=== PATIENT | female | born 1970 | race Two or more races ===

== ENCOUNTER 2024-09-06 09:09 | Outpatient (AMB) | payer MEDICAID, SELFPAY ==
[2024-09-06 09:21] VITALS: BP 112/76; PULSE 79; RESP 18; TEMP 36.2; O2SAT 95; BMI 35.0
--- NOTE | 2024-09-06 09:21 | PD.ORTHCLVIS ---
Vital signs 09/06/24 09:21 Height 1.63 m Height Method Stated Weight 92.561 kg Weight Measurement Method Standing Scale BMI 35.0 BP 112/76 Blood Pressure Source Automatic Cuff Blood Pressure Location Right Upper Arm Position Sitting Respiration 18 Pulse 79 Pulse Source Monitor Temp 97.2 F Temp Source Temporal Artery Scan Pulse Oximetry (%) 95 Oxygen Delivery Method Room Air Med/Allergies Allergies & Medications Allergies Penicillins Allergy (Severe, Verified 09/06/24 09:21) Hives Medication Reconciliation alprazolam 0.5 mg tablet (Xanax) 0.5 mg PO BID #0 tabs 02/02/17 [History Confirmed 09/06/24] albuterol sulfate 90 mcg/actuation aerosol inhaler 1 puff inhalation BID PRN Shortness Of Breath 09/20/19 [History Confirmed 09/06/24] duloxetine 60 mg capsule,delayed release 60 mg PO QDAY 09/20/19 [History Confirmed 09/06/24] gabapentin 800 mg tablet 800 mg PO TID 09/20/19 [History Confirmed 09/06/24] hydrocodone 7.5 mg-acetaminophen 300 mg tablet 1 tab PO Q8H 09/20/19 [History Confirmed 09/06/24] ibuprofen 800 mg tablet 800 mg PO BID 09/20/19 [History Confirmed 09/06/24] omeprazole 20 mg tablet,delayed release 20 mg PO QDAY 09/20/19 [History Confirmed 09/06/24] ondansetron 8 mg disintegrating tablet 8 mg PO Q8H PRN Nausea And Vomiting 09/20/19 [History Confirmed 09/06/24] ondansetron HCl 4 mg tablet (Zofran) 4 mg PO QID PRN nausea and vomiting #20 tabs 09/20/19 [Rx Confirmed 09/06/24] ropinirole 2 mg tablet 2 mg PO HS 09/20/19 [History Confirmed 09/06/24] sitagliptin phosphate 50 mg-metformin 500 mg tablet (Janumet) 1 tab PO BID 09/20/19 [History Confirmed 09/06/24] alprazolam 0.5 mg tablet (Xanax) 0.5 mg PO BID PRN anxiety #20 tabs 11/09/19 [Rx Confirmed 09/06/24] azithromycin 500 mg tablet See Rx Instructions PO .COMPLEX #6 tabs 06/04/21 [Rx Confirmed 09/06/24] ibuprofen 800 mg tablet 800 mg PO TID PRN pain #30 tabs 06/04/21 [Rx Confirmed 09/06/24] acetaminophen 500 mg tablet (Tylenol Extra Strength) 500 mg PO Q6H PRN pain #60 tabs 09/18/23 [Rx Confirmed 09/06/24] methocarbamol 500 mg tablet 1,000 mg (2 x 500 mg) PO Q8H PRN pain #30 tabs 09/18/23 [Rx Confirmed 09/06/24] hydrocodone 7.5 mg-acetaminophen 325 mg tablet 1 tab PO Q6H PRN pain #14 tabs 09/26/23 [Rx Confirmed 09/06/24] Subjective Visit Visit for: new patient and knee (RIGHT) Immunization / Flu Flu Vaccine in the Last 12 Months: No Flu Vaccine Exclusion Criteria: Refused by Patient History of Present Illness Chief complaint: RIGHT KNEE PAIN Sangita is a pleasant 53-year-old female with right knee pain and right knee arthritis. The pains been bothering her for over 5 years. She has pain in multiple joints and is on [place] because of this. She has had 3 injections in each knee in the last about 3 to 4 months. 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 [employer] Red flag PMH: smoker Pain Pain level (0-10): 5 Pain duration: CONSTANT Pain location: inside (medial) Pain quality: sharp, dull, aching, burning, shocking, electric and tingling Pain timing: night, increases with activity and stairs Associated signs & symptoms: numbness, weakness and stiffness Ambulatory data Ambulatory device: other (specify) (BRACES) Treatments Number of previous injections: 3 Improvement with previous injections: No Number of Physical Therapy sessions: 24 Improvement with PT: No Improvement with NSAIDS: no Review of Systems Review of Systems: All systems negative unless otherwise noted in HPI. Exam Exam Patient is in no acute distress and is cooperative with the examination today. Breathing is nonlabored. Patient has a normal mood and affect. Bilateral extremities were evaluated and demonstrates sensation intact to light touch. Palpable pedal pulses are present. No significant edema is present. Bilateral hips were examined. The patient has no pain with log roll of the hips. Internal rotation to 30 degrees and external rotation to 30 degrees is painless. Negative FADIR. Left knee was examined today. The left knee is in reasonable alignment. Range of motion from 0-120 degrees. Knee is stable to varus and valgus as well as AP translation with <5mm. Patient has a negative McMurrays. There is no pain with patellofemoral compression and no crepitus noted. The knee is nontender to palpation. The right knee was also examined. The right knee is in valgus alignment. Range of motion from [0-115] degrees. Knee is stable to varus and valgus as well as AP translation with <5mm. Patient has a [negative] McMurrays. There is [no] pain with patellofemoral compression and [no] crepitus noted. The knee is [tender] to palpation laterally. Assessment and Plan Problem List (1) Arthritis of right knee: Status: Acute Plan: Patient is a 53-year-old female with right knee pain and right knee arthritis. We discussed nonoperative and operative options. She has a history of blood clots when she was . She had 6 blood clots in the lungs according to her. She is thus looking avoid surgery if possible. We thus discussed I would recommend bilateral knee cortisone injections every 3 to 4 months as needed. 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 Level 4 ([id number]) Past Medical History Past Medical History Have you ever been diagnosed with any of the following: Neurological Problems Seizures: No Head Trauma: No Cardiology Problems Hypercholesterolemia: Yes Congestive Heart Failure: No Hypertension: Yes Respiratory Problems Chronic Obstructive Pulmonary Disease (COPD): No Asthma: No Pulmonary Embolism: Yes Sleep Apnea: Yes Smoking: No Smoking Exposure: No Stomache/Intestinal Problems Gall Bladder Disease: Yes Genital/Urinary Problems Renal Disease: No Kidney Stones: Yes Reproductive Problems Previous Pregnancies: Yes Musculoskeletal Problems Arthritis: No Degenerative Disk Disease: No Endocrine Problems Diabetes Mellitus Type 1: No Diabetes Mellitus Type 2: Yes Blood Problems Sickle Cell Disease: No Psychologic Problems Depression: No Anxiety: No Other Problems Hospitalization: Yes Shingles: No Falls: No Blood Transfusions: Yes Blood Transfusion Reaction: No Anesthesia Reactions: No Chemotherapy: No Radiation Therapy: No MRSA: No Chicken Pox: Yes
== END 2024-09-06 09:33 | disposition home or self-care (01) ==
LOC: HODSRG 09:09
PROVIDERS: PCP Internal Medicine; Referring Provider Internal Medicine; Supervising Provider Orthopaedic Surgery Adult Reconstructive Orthopaedic Surgery; Visit Provider Orthopaedic Surgery Adult Reconstructive Orthopaedic Surgery
DX: M17.11 Unilateral primary osteoarthritis, right knee (principal); M25.561 Pain in right knee; I10 Essential (primary) hypertension; E78.00 Pure hypercholesterolemia, unspecified; G47.30 Sleep apnea, unspecified; Z86.711 Personal history of pulmonary embolism
CPT/HCPCS: 99204; G0463

== ENCOUNTER 2024-09-25 10:26 | Outpatient (AMB) | payer MEDICAID, SELFPAY ==
[2024-09-25 10:35] VITALS: BP 114/77; PULSE 89; RESP 19; TEMP 36.1; O2SAT 98; BMI 34.2
--- NOTE | 2024-09-25 10:35 | ORTHONT_ITS ---
Vital signs 09/25/24 10:35 Height 1.63 m Height Method Stated Weight 90.917 kg Weight Measurement Method Standing Scale BMI 34.2 BP 114/77 Blood Pressure Source Automatic Cuff Blood Pressure Location Right Upper Arm Position Sitting Respiration 19 Pulse 89 Pulse Source Monitor Temp 96.9 F Temp Source Temporal Artery Scan Pulse Oximetry (%) 98 Oxygen Delivery Method Room Air Med/Allergies Allergies & Medications Allergies Penicillins Allergy (Severe, Verified 09/25/24 10:36) Hives Medication Reconciliation alprazolam 0.5 mg tablet (Xanax) 0.5 mg PO BID #0 tabs 02/02/17 [History Conf irmed 09/25/24] albuterol sulfate 90 mcg/actuation aerosol inhaler 1 puff inhalation BID PRN Shortness Of Breath 09/20/19 [History Confirmed 09/25/24] duloxetine 60 mg capsule,delayed release 60 mg PO QDAY 09/20/19 [History Confirmed 09/25/24] gabapentin 800 mg tablet 800 mg PO TID 09/20/19 [History Confirmed 09/25/24] hydrocodone 7.5 mg-acetaminophen 300 mg tablet 1 tab PO Q8H 09/20/19 [History C onfirmed 09/25/24] ibuprofen 800 mg tablet 800 mg PO BID 09/20/19 [History Confirmed 09/25/24] omeprazole 20 mg tablet,delayed release 20 mg PO QDAY 09/20/19 [History Confirmed 09/25/24] ondansetron 8 mg disintegrating tablet 8 mg PO Q8H PRN Nausea And Vomiting 09/20/19 [History Confirmed 09/25/24] ondansetron HCl 4 mg tablet (Zofran) 4 mg PO QID PRN nausea and vomiting #20 tabs 09/20/19 [Rx Confirmed 09/25/24] ropinirole 2 mg tablet 2 mg PO HS 09/20/19 [History Confirmed 09/25/24] sitagliptin phosphate 50 mg-metformin 500 mg tablet (Janumet) 1 tab PO BID 09/20/19 [History Confirmed 09/25/24] alprazolam 0.5 mg tablet (Xanax) 0.5 mg PO BID PRN anxiety #20 tabs 11/09/19 [Rx Confirmed 09/25/24] azithromycin 500 mg tablet See Rx Instructions PO .COMPLEX #6 tabs 06/04/21 [Rx Confirmed 09/25/24] ibuprofen 800 mg tablet 800 mg PO TID PRN pain #30 tabs 06/04/21 [Rx Confirmed 09/25/24] acetaminophen 500 mg tablet (Tylenol Extra Strength) 500 mg PO Q6H PRN pain #60 tabs 09/18/23 [Rx Confirmed 09/25/24] methocarbamol 500 mg tablet 1,000 mg (2 x 500 mg) PO Q8H PRN pain #30 tabs 09/18/23 [Rx Confirmed 09/25/24] hydrocodone 7.5 mg-acetaminophen 325 mg tablet 1 tab PO Q6H PRN pain #14 tabs 09/26/23 [Rx Confirmed 09/25/24] Subjective Visit Visit for: follow up visit and knee Immunization / Flu Flu Vaccine in the Last 12 Months: No Flu Vaccine Exclusion Criteria: No Exclusion Criteria History of Present Illness Chief complaint: KNEE PAIN Sangita is a pleasant 53-year-old female with right knee pain and right knee arthritis. The pains been bothering her for over 5 years. She has pain in multiple joints and is on [place] because of this. She has had 3 injections in each knee in the last about 3 to 4 months. She reports the right knee significantly worse than the left. She would bilateral knee injections today. 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 Exam Exam Patient is in no acute distress and is cooperative with the examination today. Breathing is nonlabored. Patient has a normal mood and affect. Bilateral extremities were evaluated and demonstrates sensation intact to light touch. Palpable pedal pulses are present. No significant edema is present. Bilateral hips were examined. The patient has no pain with log roll of the hips. Internal rotation to 30 degrees and external rotation to 30 degrees is painless. Negative FADIR. Left knee was examined today. The left knee is in reasonable alignment. Range of motion from 0-120 degrees. Knee is stable to varus and valgus as well as AP translation with <5mm. Patient has a negative McMurrays. There is no pain with patellofemoral compression and no crepitus noted. The knee is nontender to palpation. The right knee was also examined. The right knee is in valgus alignment. Range of motion from [0-115] degrees. Knee is stable to varus and valgus as well as AP translation with <5mm. Patient has a [negative] McMurrays. There is [no] pain with patellofemoral compression and [no] crepitus noted. The knee is [tender] to palpation laterally. Assessment and Plan Problem List (1) Arthritis of right knee: Status: Acute Plan: Patient is a 53-year-old female with right knee pain and right knee arthritis. She has significant arthritis of the right knee. We will Here for bilateral knee injections today. She would like to avoid surgery if possible Recommend knee cortisone injections as patient would like to proceed with conservative treatment at this time. The risks and benefits of the procedure were reviewed with the patient and patient gave verbal consent to continue with the procedure. Procedure: performed by Dr. Bateman Using sterile technique the Bilateral knees were thoroughly prepped with alcohol, and approximately 1 cc of Kenalog 40 mg/mL and 4 cc of 1% lidocaine was injected into each knee without resistance into the medial tibial femoral joint space. The patient tolerated the procedure. Office Procedures GNS Level of Care Nursing/Assessment Patient Status: Established Patient Nursing Assessment/Reassesment: Medication Reconciliation, Update PMH in EMR and Vital Signs Coordination of Care: Complex Care and Chronic Disease 1-5, Education Complex Pt/Fam, Consent,records obtained, informed consent, Results/Orders obtained and Staff clarify orders Established Patient Charge Established Patient Point Assignment: 95 Established Patient Point Charge: EP Level 3 (80-115) Surgical Proc/IM SQ injection Major Surgical Procedure: Yes (KNEE INJECTION ) Past Medical History Past Medical History Have you ever been diagnosed with any of the following: Neurological Problems Seizures: No Head Trauma: No Cardiology Problems Hypercholesterolemia: Yes Congestive Heart Failure: No Hypertension: Yes Respiratory Problems Chronic Obstructive Pulmonary Disease (COPD): No Asthma: No Pulmonary Embolism: Yes Sleep Apnea: Yes Smoking: No Smoking Exposure: No Stomache/Intestinal Problems Gall Bladder Disease: Yes Genital/Urinary Problems Renal Disease: No Kidney Stones: Yes Reproductive Problems Previous Pregnancies: Yes Musculoskeletal Problems Arthritis: No Degenerative Disk Disease: No Endocrine Problems Diabetes Mellitus Type 1: No Diabetes Mellitus Type 2: Yes Blood Problems Sickle Cell Disease: No Psychologic Problems Depression: No Anxiety: No Other Problems Hospitalization: Yes Shingles: No Falls: No Blood Transfusions: Yes Blood Transfusion Reaction: No Anesthesia Reactions: No Chemotherapy: No Radiation Therapy: No MRSA: No Chicken Pox: Yes
== END 2024-09-25 11:01 | disposition home or self-care (01) ==
LOC: HODSRG 10:26
PROVIDERS: PCP Internal Medicine; Referring Provider Internal Medicine; Supervising Provider Orthopaedic Surgery Adult Reconstructive Orthopaedic Surgery; Visit Provider Orthopaedic Surgery Adult Reconstructive Orthopaedic Surgery
DX: M17.11 Unilateral primary osteoarthritis, right knee (principal); M25.561 Pain in right knee; I10 Essential (primary) hypertension; E78.00 Pure hypercholesterolemia, unspecified; Z86.711 Personal history of pulmonary embolism
CPT/HCPCS: 20610; 99213; J3301; J3490; G0463

== ENCOUNTER 2024-11-01 00:12 | Emergency (ER) | payer MEDICAID, SELFPAY ==
[2024-11-01 00:12] VITALS: BMI 32.4
[2024-11-01 00:26] VITALS: BP 113/77; PULSE 92; RESP 18; TEMP 36.6; O2SAT 98
--- NOTE | 2024-11-01 00:38 | XR_ITS ---
Examination: Shoulder,left, 3 views Technique: Shoulder AP internal rotation, AP external rotation, Y view shoulder, 3 views Exam date and time :November 01, 2024 0106 hrs. Indications: Left shoulder pain beginning 4 days ago. Findings: No shoulder fracture or dislocation Mild narrowing glenohumeral joint No calcific tendinitis Impression: Mild narrowing glenohumeral joint
--- NOTE | 2024-11-01 02:42 | PD.EDUPEX ---
Upper Extremity Injury RME/HPI General Chief Complaint: Extremity Injury, Upper Stated Complaint: LEFT SHOULDER/BACK PAIN X 4DAYS Time Seen by Provider: 11/01/24 00:41 Source: patient Arrival date/time: 11/01/24 00:12 54-year-old female with no known medical history presents to the emergency room with a chief complaint of left shoulder and back pain x 4 days. Mode of arrival: ambulatory Limitations: no limitations Related Data Home Medications ?Medication ?Instructions ?Recorded ?Confirmed alprazolam 0.5 mg tablet (Xanax) 0.5 mg PO BID #0 tabs 02/02/17 09/25/24 albuterol sulfate 90 mcg/actuation 1 puff inhalation BID PRN 09/20/19 09/25/24 aerosol inhaler Shortness Of Breath duloxetine 60 mg capsule,delayed 60 mg PO QDAY 09/20/19 09/25/24 release gabapentin 800 mg tablet 800 mg PO TID 09/20/19 09/25/24 hydrocodone 7.5 mg-acetaminophen 1 tab PO Q8H 09/20/19 09/25/24 300 mg tablet ibuprofen 800 mg tablet 800 mg PO BID 09/20/19 09/25/24 omeprazole 20 mg tablet,delayed 20 mg PO QDAY 09/20/19 09/25/24 release ondansetron 8 mg disintegrating 8 mg PO Q8H PRN Nausea And Vomiting 09/20/19 09/25/24 tablet ropinirole 2 mg tablet 2 mg PO HS 09/20/19 09/25/24 sitagliptin phosphate 50 1 tab PO BID 09/20/19 09/25/24 mg-metformin 500 mg tablet (Janumet) Previous Rx's ?Medication ?Instructions ?Recorded ondansetron HCl 4 mg tablet 4 mg PO QID PRN nausea and 09/20/19 (Zofran) vomiting #20 tabs alprazolam 0.5 mg tablet (Xanax) 0.5 mg PO BID PRN anxiety #20 tabs 11/09/19 azithromycin 500 mg tablet See Rx Instructions PO .COMPLEX #6 06/04/21 tabs ibuprofen 800 mg tablet 800 mg PO TID PRN pain #30 tabs 06/04/21 acetaminophen 500 mg tablet 500 mg PO Q6H PRN pain #60 tabs 09/18/23 (Tylenol Extra Strength) methocarbamol 500 mg tablet 1,000 mg (2 x 500 mg) PO Q8H PRN 09/18/23 pain #30 tabs hydrocodone 7.5 mg-acetaminophen 1 tab PO Q6H PRN pain #14 tabs 09/26/23 325 mg tablet Allergies Allergy/AdvReac Type Severity Reaction Status Date / Time Penicillins Allergy Severe Hives Verified 09/25/24 10:36 Review of Systems Review of Systems Systems Reviewed: All systems reviewed, normal except as documented Constitutional Constitutional: Reports system reviewed and no additional complaints, except as documented, Denies fatigue, Denies fever(s), Denies headache(s) and Denies weakness Eyes Eyes: Reports system reviewed and no additional complaints, except as documented, Denies blurry vision and Denies change in vision ENT Ears, Nose, Mouth, and Throat: Reports system reviewed and no additional complaints, except as documented, Denies otalgia, Denies headache(s), Denies nasal congestion, Denies throat swelling and Denies vertigo Cardiovascular Cardiovascular: Reports system reviewed and no additional complaints, except as documented, Denies chest pain, Denies dyspnea and Denies dyspnea on exertion Respiratory Respiratory: Reports system reviewed and no additional complaints, except as documented, Denies chest congestion, Denies cough, Denies dyspnea, Denies dyspnea on exertion and Denies wheezing Gastrointestinal Gastrointestinal: Reports system reviewed and no additional complaints, except as documented, Denies abdominal pain, Denies cramping, Denies nausea and Denies vomiting Genitourinary Genitourinary: Reports system reviewed and no additional complaints, except as documented Musculoskeletal Musculoskeletal: Reports system reviewed and no additional complaints, except as documented, Reports arthralgias, Denies back pain and Reports joint swelling Integumentary/Breasts Skin/Breast: Reports system reviewed and no additional complaints, except as documented and Denies wounds Neurologic Neurologic: Reports system reviewed and no additional complaints, except as documented, Denies confusion, Denies headache(s), Denies lack of coordination, Denies vertigo and Denies weakness Psychiatric Psychiatric: Reports system reviewed and no additional complaints, except as documented, Denies anxiety, Denies confusion, Denies depression, Denies paranoia, Denies suicidal ideation and Denies tactile hallucinations Endocrine Endocrine: Reports system reviewed and no additional complaints, except as documented and Denies fatigue Hematologic/Lymphatic Hematologic/Lymphatic: Reports system reviewed and no additional complaints, except as documented and Denies lymphadenopathy Allergic/Immunologic Allergic/Immunologic: Reports system reviewed and no additional complaints, except as documented, Denies throat swelling, Denies urticaria and Denies wheezing Past Medical History Past Medical History NEUROLOGIC: Negative Neurological Disorders, Seizures or Head Trauma CARDIAC: Positive Hypercholesterolemia and Hypertension; Negative Cardiac Disorders or Congestive Heart Failure RESPIRATORY: Positive Pulmonary Embolism and Sleep Apnea; Negative Chronic Obstructive Pulmonary Disease (COPD), Asthma, Smoking or Smoking Exposure GASTROINTESTINAL: Positive Gastrointestinal Disorders and Gall Bladder Disease GENITOURINARY: Positive Kidney Stones; Negative Genitourinary Disorders or Renal Disease REPRODUCTIVE: Positive Previous Pregnancies MUSCULOSKELETAL: Negative Musculoskeletal Disorders, Arthritis or Degenerative Disk Disease ENT: Negative Head Trauma ENDOCRINE: Positive Diabetes Mellitus Type 2; Negative Endocrine Disorders or Diabetes Mellitus Type 1 HEMATOLOGIC: Negative Blood Disorders or Sickle Cell Disease PSYCHO/SOCIAL: Negative Depression or Anxiety OTHER HISTORY: Positive Hospitalization, Blood Transfusions and Chicken Pox; Negative Autoimmune Disease, Shingles, Falls, Blood Transfusion Reaction, Anesthesia Reactions, Chemotherapy, Radiation Therapy or MRSA Family History FAMILY HISTORY: Positive Family Psychiatric Problems, Family Cardiac Disorders and Family Surgery; Negative Family Respiratory Disorders, Family Gastrointestinal Problems, Family Cancer or Family Anesthesia Reaction Surgical History SURGICAL: Positive Section Social History SMOKING STATUS: Never smoker SECOND HAND EXPOSURE: No ED Exam General Limitations: Present no limitations General appearance: Present alert and in no apparent distress Head Head exam: Present atraumatic Eye Eye exam: Present normal appearance, PERRL and EOMI ENT ENT exam: Present normal exam, normal oropharynx and mucous membranes moist Neck Neck exam: Present normal inspection, full ROM and trachea midline Chest Chest inspection: Present normal inspection and symmetric chest wall rise Respiratory Respiratory exam: Present normal lung sounds bilaterally Cardiovascular Cardiovascular exam: Present regular rate, normal rhythm and normal heart sounds Abdominal Exam Abdominal exam: Present soft and normal bowel sounds Extremities Exam Extremities exam: Present normal inspection and full ROM Expanded Upper Extremity Exam Shoulder exam: Present tenderness; Absent full ROM Back Exam Back exam: Present normal inspection and full ROM Neurological Exam Neurological exam: Present alert, oriented X3 and CN II-XII intact Psychiatric Psychiatric exam: Present normal affect and normal mood Skin Skin exam: Present warm, dry, intact and normal color Course Quality Measures none Orders Category Date Time Status sling [Splint / Immobilizer] STAT Care 11/01/24 03:20 Completed XR shoulder LT min 2V Stat Exams 11/01/24 00:38 Taken Vital Signs Vital signs: Vital Signs Temperature 97.8 F 11/01/24 00:26 Pulse Rate 92 11/01/24 00:26 Respiratory Rate 18 11/01/24 00:26 Blood Pressure 113/77 11/01/24 00:26 Pulse Oximetry (%) 98 11/01/24 00:26 Oxygen Delivery Method Room Air 11/01/24 00:26 O2 saturation 98% within normal limits Extremity Injury MDM Narrative MDM Narrative:: 54-year-old female with no known medical history presents to the emergency room with a chief complaint of left shoulder and back pain x 4 days. Clinically the patient appears nontoxic and in no apparent distress. Physical examination shows pain and tenderness to the left shoulder with palpation. Patient is also unable to lift up her arm and states she has 10 out of 10 pain when moving it. Shoulder x-ray was completed and was negative for any acute fracture however patient was educated that she needs to follow-up with her primary care provider as she needs an MRI to check for any ligament damage or strains. Sling was placed. Patient was discharged and educated to follow-up with primary care provider and return to the emergency room for any evidence of worsening signs or symptoms Patient data External records reviewed:: [facility] previous records Clinical information provided by:: patient Social determinants that could affect healthcare access:: none Patient has the following chronic illnesses:: No chronic illness How is presenting disease/condition affected by chronic disease/condition?: no chronic disease Evaluation data The following diagnostics were reviewed and interpreted by me:: lab results and radiology exam(s) Lab and/or radiology exams considered but not ordered:: Labs and radiology exams considered and ordered Interpretation Summary: Left shoulder x-ray-no acute fracture Medications / Prescriptions Medications or Prescriptions considered but not ordered:: No medication given Medication administrations:: No medication given Consultations Consultation(s) initiated? (list below): No Diagnosis Upper Extremity Injury Differential Diagnosis: dislocation of shoulder, fracture of clavicle and other (Shoulder sprain/shoulder fracture) Most likely diagnosis given after review of the tests above:: Shoulder sprain Admission Indicated Admission indicated?: not indicated Admission Request Was there a request for admission?: No Disposition Plan Disposition Plan: Discharge Discharge Attestation Discharge Attestation: The patient and all family members were given an opportunity to ask questions and understood the discharge instructions. Discharge instructions specifically effects, indications for sooner follow up or return to the emergency department, and the expected course of current diagnosis. Patient condition: Stable Discharge Plan Plan Patient Disposition: HOME (Self Care) Disposition Comment: Stable Prescriptions/Referrals Prescriptions/Med Rec: No Action alprazolam [Xanax] 0.5 MG tablet 0.5 mg PO BID Qty: 0 alprazolam [Xanax] 0.5 mg tablet 0.5 mg PO BID PRN (Reason: anxiety) Qty: 20 0RF azithromycin 500 mg tablet See Rx Instructions .ROUTE .COMPLEX Qty: 6 0RF Rx Instructions: take 500 mg today (day 1), then 250 mg for 4 days (days 2-5) ibuprofen 800 mg tablet 800 mg PO TID PRN (Reason: pain) Qty: 30 0RF ibuprofen 800 mg Tablet 800 mg PO BID ondansetron 8 mg tablet,disintegrating 8 mg PO Q8H PRN (Reason: Nausea And Vomiting) Patient Comments: DISSOLVE ONE TABLET BY MOUTH EVERY TWELVE HOURS NEEDED FOR NAUSEA AND VOMITING FOR 10 DAYS gabapentin 800 mg tablet 800 mg PO TID ropinirole 2 mg tablet 2 mg PO HS Patient Comments: TAKE ONE TABLET BY MOUTH THREE HOURS BEFORE BEDTIME albuterol sulfate 90 mcg/actuation HFA aerosol inhaler 1 puff inhalation BID PRN (Reason: Shortness Of Breath) duloxetine 60 mg capsule,delayed release(DR/EC) 60 mg PO QDAY hydrocodone-acetaminophen 7.5-300 mg tablet 1 tab PO Q8H Patient Comments: TAKE ONE TABLET BY MOUTH EVERY 8 HOURS NEEDED FOR PAIN FOR 30 DAYS Janumet 50-500 mg tablet 1 tab PO BID Patient Comments: TAKE ONE TABLET BY MOUTH WITH MEALS TWICE DAILY FOR DIABETES omeprazole 20 mg tablet,delayed release (DR/EC) 20 mg PO QDAY ondansetron HCl [Zofran] 4 mg tablet 4 mg PO QID PRN (Reason: nausea and vomiting) Qty: 20 0RF Tylenol Extra Strength 500 mg tablet 500 mg PO Q6H PRN (Reason: pain) Qty: 60 0RF methocarbamol 500 mg tablet 1,000 mg PO Q8H PRN (Reason: pain) Qty: 30 0RF hydrocodone-acetaminophen 7.5-325 mg tablet 1 tab PO Q6H MDD 4 PRN (Reason: pain) Qty: 14 0RF Referrals: Temporary Provider,ED [Physician] - In 1 week Problem List Clinical Impression: Shoulder sprain Patient/Caregiver Discharge Instructions Education Materials: ED TOBIN Wrap, ED Shoulder Sprain Additional Instructions: Please follow-up with your primary care provider in the next 24 to 48 hours. X-ray was completed and was negative for any acute fractures. If your signs and symptoms continue you will need to follow-up with your primary care provider to check for any ligament damage sprains or strains with an outpatient MRI. For any evidence of worsening signs or symptoms please return to the emergency room immediately Print Language: Burmese Stand Alone Forms: [facility] Award Info., Patient Portal Info Letter PA/CORPORATE SPECIALIST Supervising Physician PA/RADHA Supervising Physician: Dr. Ha
[2024-11-01 03:27] VITALS: RESP 18
--- NOTE | 2024-11-01 05:01 | PRELIM_ITS ---
Radiographs of the left shoulder joint (3 views) November 01, 2024 0106 hoursClinical history: Shoulde r painComparison: No prior study is available for comparison. Findings:There is sclerosis and osteoph ytic spiking of the greater tuberosity of the humerus and the tip of the acromion process. The subacr omial space is decreased. There is no evidence of calcification in the region of the rotator cuff. Th e glenohumeral and acromioclavicular joints are normal in configuration and alignment. No bony abnorm ality or fracture is identified. Impression:Periarthritis of the left shoulder joint. Report Electron ically Signed By: Karime Virk 11/01/2024 5:01:01 AM [EST]
== END 2024-11-01 03:29 | disposition home or self-care (01) ==
PROVIDERS: Emergency Provider Emergency Medicine; PCP Internal Medicine
DX: S43.402A Unspecified sprain of left shoulder joint, initial encounter (principal); M54.9 Dorsalgia, unspecified; X58.XXXA Exposure to other specified factors, initial encounter
CPT/HCPCS: 73030; 99283; A4565

== ENCOUNTER 2024-12-25 09:30 | Outpatient (AMB) | payer MEDICAID, SELFPAY ==
[2024-12-25 09:37] VITALS: BP 103/73; PULSE 86; RESP 18; TEMP 36.4; O2SAT 98; BMI 37.3
--- NOTE | 2024-12-25 09:37 | PD.ORTHCLVIS ---
Vital signs 12/25/24 09:37 Height 1.63 m Height Method Stated Weight 99.053 kg Weight Measurement Method Standing Scale BMI 37.3 BP 103/73 Blood Pressure Source Automatic Cuff Blood Pressure Location Left Upper Arm Position Sitting Respiration 18 Pulse 86 Pulse Source Monitor Temp 97.5 F Temp Source Temporal Artery Scan Pulse Oximetry (%) 98 Oxygen Delivery Method Room Air Med/Allergies Allergies & Medications Allergies Penicillins Allergy (Severe, Verified 09/25/24 10:36) Hives Medication Reconciliation alprazolam 0.5 mg tablet (Xanax) 0.5 mg PO BID #0 tabs 02/02/17 [History Confirmed 12/25/24] albuterol sulfate 90 mcg/actuation aerosol inhaler 1 puff inhalation BID PRN Shortness Of Breath 09/20/19 [History Confirmed 12/25/24] duloxetine 60 mg capsule,delayed release 60 mg PO QDAY 09/20/19 [History Confirmed 12/25/24] gabapentin 800 mg tablet 800 mg PO TID 09/20/19 [History Confirmed 12/25/24] hydrocodone 7.5 mg-acetaminophen 300 mg tablet 1 tab PO Q8H 09/20/19 [History Confirmed 12/25/24] ibuprofen 800 mg tablet 800 mg PO BID 09/20/19 [History Confirmed 12/25/24] omeprazole 20 mg tablet,delayed release 20 mg PO QDAY 09/20/19 [History Confirmed 12/25/24] ondansetron 8 mg disintegrating tablet 8 mg PO Q8H PRN Nausea And Vomiting 09/20/19 [History Confirmed 12/25/24] ondansetron HCl 4 mg tablet (Zofran) 4 mg PO QID PRN nausea and vomiting #20 tabs 09/20/19 [Rx Confirmed 12/25/24] ropinirole 2 mg tablet 2 mg PO HS 09/20/19 [History Confirmed 12/25/24] sitagliptin phosphate 50 mg-metformin 500 mg tablet (Janumet) 1 tab PO BID 09/20/19 [History Confirmed 12/25/24] alprazolam 0.5 mg tablet (Xanax) 0.5 mg PO BID PRN anxiety #20 tabs 11/09/19 [Rx Confirmed 12/25/24] azithromycin 500 mg tablet See Rx Instructions PO .COMPLEX #6 tabs 06/04/21 [Rx Confirmed 12/25/24] ibuprofen 800 mg tablet 800 mg PO TID PRN pain #30 tabs 06/04/21 [Rx Confirmed 12/25/24] acetaminophen 500 mg tablet (Tylenol Extra Strength) 500 mg PO Q6H PRN pain #60 tabs 09/18/23 [Rx Confirmed 12/25/24] methocarbamol 500 mg tablet 1,000 mg (2 x 500 mg) PO Q8H PRN pain #30 tabs 09/18/23 [Rx Confirmed 12/25/24] hydrocodone 7.5 mg-acetaminophen 325 mg tablet 1 tab PO Q6H PRN pain #14 tabs 09/26/23 [Rx Confirmed 12/25/24] Exam Exam Patient is in no acute distress and is cooperative with the examination today. Breathing is nonlabored. Patient has a normal mood and affect. Bilateral extremities were evaluated and demonstrates sensation intact to light touch. Palpable pedal pulses are present. No significant edema is present. Bilateral hips were examined. The patient has no pain with log roll of the hips. Internal rotation to 30 degrees and external rotation to 30 degrees is painless. Negative FADIR. Left knee was examined today. The left knee is in reasonable alignment. Range of motion from 0-120 degrees. Knee is stable to varus and valgus as well as AP translation with <5mm. Patient has a negative McMurrays. There is no pain with patellofemoral compression and no crepitus noted. The knee is nontender to palpation. The right knee was also examined. The right knee is in valgus alignment. Range of motion from [0-115] degrees. Knee is stable to varus and valgus as well as AP translation with <5mm. Patient has a [negative] McMurrays. There is [no] pain with patellofemoral compression and [no] crepitus noted. The knee is [tender] to palpation laterally. Patient is a 54-year-old female with severe right knee valgus arthritis on x-ray Assessment and Plan Problem List (1) Arthritis of right knee: Status: Acute Plan: Patient is a 53-year-old female with right knee pain and right knee arthritis. She has significant arthritis of the right knee. We will Here for bilateral knee injections today. She would like to avoid surgery if possible Recommend knee cortisone injections as patient would like to proceed with conservative treatment at this time. The risks and benefits of the procedure were reviewed with the patient and patient gave verbal consent to continue with the procedure. Procedure: performed by Dr. Bateman Using sterile technique the Bilateral knees were thoroughly prepped with alcohol, and approximately 1 cc of Kenalog 40 mg/mL and 4 cc of 1% lidocaine was injected into each knee without resistance into the medial tibial femoral joint space. The patient tolerated the procedure. Office Procedures GNS Level of Care Nursing/Assessment Patient Status: Established Patient Nursing Assessment/Reassesment: Medication Reconciliation, Update PMH in EMR and Vital Signs Coordination of Care: Complex Care and Chronic Disease 1-5, Education Complex Pt/Fam, Consent,records obtained, informed consent, Results/Orders obtained and Staff clarify orders Established Patient Charge Established Patient Point Assignment: 95 Established Patient Point Charge: EP Level 3 (80-115) Surgical Proc/IM SQ injection Major Surgical Procedure: Yes (BILATERAL KNEE INJECTION) Medication Given Medication Given Medication Given: Yes Documented Dose Given: 4 Route: Infiitration Medication Given Medication Given Medication Given: Yes Documented Dose Given: 1 Route: Infiitration Office Meds Xylocaine 10 mg/mL (1 %) injection solution Performing Provider: Deuce Bateman MD Performing Location: [facility] Administered by: Deuce Bateman MD on 12/25/24 09:46 Dose Route Admin Location Dispensed Lot Number Expiration Date [facility] Spray Machine Operator 20 mL Infiltration 20 mL [id number] 02/14/28 86081-086-47 [facility] triamcinolone acetonide 40 mg/mL suspension for injection Performing Provider: Deuce Bateman MD Performing Location: [facility] Administered by: Deuce Bateman MD on 12/25/24 09:46 Dose Route Admin Location Dispensed Lot Number Expiration Date [facility] Spray Machine Operator 40 mg intra-articular KNEE 1 mL [id number] 03/15/26 8483-0078-89 TEVA PARENTERAL MA Intake Visit Data Collection New Patient or Established: Established Patient (seen at [facility] within 3 years) Reason for Visit:: 3 MTH RIGHT KNEE INJ Seen by Clinical Staff ONLY (RN/MA): No Helicopter Mechanic Required: No PCP or OBGYN visit in last 3 months: Yes Hx Now: No Do You Feel Safe at Home: Yes Authorities Contacted: N/A Questionairres Past Medical History Past Medical History Have you ever been diagnosed with any of the following: Neurological Problems Seizures: No Head Trauma: No Cardiology Problems Hypercholesterolemia: Yes Congestive Heart Failure: No Hypertension: Yes Respiratory Problems Chronic Obstructive Pulmonary Disease (COPD): No Asthma: No Pulmonary Embolism: Yes Sleep Apnea: Yes Smoking: No Smoking Exposure: No Stomache/Intestinal Problems Gall Bladder Disease: Yes Genital/Urinary Problems Renal Disease: No Kidney Stones: Yes Reproductive Problems Previous Pregnancies: Yes Musculoskeletal Problems Arthritis: No Degenerative Disk Disease: No Endocrine Problems Diabetes Mellitus Type 1: No Diabetes Mellitus Type 2: Yes Blood Problems Sickle Cell Disease: No Psychologic Problems Depression: No Anxiety: No Other Problems Hospitalization: Yes Shingles: No Falls: No Blood Transfusions: Yes Blood Transfusion Reaction: No Anesthesia Reactions: No Chemotherapy: No Radiation Therapy: No MRSA: No Chicken Pox: Yes Subjective Visit Visit for: follow up visit, knee (RIGHT) and injections Immunization / Flu Flu Vaccine in the Last 12 Months: Yes Flu Vaccine Exclusion Criteria: Already Received History of Present Illness Chief complaint: right knee pain Patient is a pleasant 54-year-old female with severe right knee pain and right knee arthritis. We discussed nonoperative and operative options. She would like to continue with conservative treatment including repeat injection. Pain Pain level (0-10): 7 Pain duration: CONSTANT Pain location: inside (medial), anterior and posterior Pain quality: dull and aching Pain timing: increases with activity and stairs Associated signs & symptoms: weakness and stiffness Ambulatory data Ambulatory device: none Treatments Number of previous injections: 1 Improvement with previous injections: Yes Improvement with PT: No Improvement with NSAIDS: no Review of Systems Review of Systems: All systems negative unless otherwise noted in HPI.
== END 2024-12-25 09:51 | disposition home or self-care (01) ==
LOC: HODSRG 09:30
PROVIDERS: PCP Internal Medicine; Referring Provider Internal Medicine; Supervising Provider Orthopaedic Surgery Adult Reconstructive Orthopaedic Surgery; Visit Provider Orthopaedic Surgery Adult Reconstructive Orthopaedic Surgery
DX: M17.11 Unilateral primary osteoarthritis, right knee (principal); E78.00 Pure hypercholesterolemia, unspecified; I10 Essential (primary) hypertension; G47.30 Sleep apnea, unspecified; Z86.711 Personal history of pulmonary embolism
CPT/HCPCS: 20610; 99213; J3301; J3490; G0463